=== PATIENT | male | born 2000 | race African-American/Black ===

== ENCOUNTER 2021-07-13 13:57 | Emergency (ER) | payer SELFPAY | END 2021-07-13 16:16 | disposition home or self-care (01) | LOC: CSHERS 13:57 | DX: J02.9 Acute pharyngitis, unspecified (principal); F17.290 Nicotine dependence, other tobacco product, uncomplicated | CPT/HCPCS: 87081; 87430; 99283 ==

== ENCOUNTER 2022-10-21 22:21 | Emergency (ER) | payer SELFPAY ==
[2022-10-21] MEDS ORDERED: predniSONE 20 MG TAB ONE (22:43)
[2022-10-21 23:33] LABS: SARS-CoV-2 NAA Rapid Test Not Detected (NotDetected)
== END 2022-10-21 23:55 | disposition home or self-care (01) ==
LOC: CSHERS 22:21
DX: J20.9 Acute bronchitis, unspecified (principal); Z20.822 Contact with and (suspected) exposure to COVID-19; F17.290 Nicotine dependence, other tobacco product, uncomplicated
CPT/HCPCS: 99284; J7512